=== PATIENT | female | born 1960 | race Caucasian/White ===

== ENCOUNTER → 2017-01-26 | Outpatient (CLI) | payer BC | LOC: FIMAGING 14:11 | DX: Z12.31 Encounter for screening mammogram for malignant neoplasm of breast (principal) | CPT/HCPCS: G0202 ==

== ENCOUNTER 2017-10-06 13:03 | Emergency (ER) | payer BC ==
[2017-10-06 13:16] VITALS: BP 127/84; PULSE 90; RESP 16; TEMP 98.1; O2SAT 93
--- NOTE | 2017-10-06 14:26 | EDPHY ---
H & P Time Seen by Provider: 10/06/17 13:08 HPI/ROS: 56-year-old female presents complaining of right foot pain, she states she was at the [facility] corner when a ladder fell on top of her foot at the exact same time that the ladder fell she was holding a can of large green [employer] which also fell on her foot landing on the dorsum of her foot. Review of systems General no fever no chills no weakness HEENT no eye pain no eye discharge. No eye redness, no sore throat Respiratory no cough, no shortness of breath Cardiac no chest pain, no peripheral edema GI no abdominal pain, no diarrhea, no constipation, no nausea, no vomiting no flank pain, no hematuria, no dysuria Musculoskeletal no myalgias, positive joint pain Heme no easy bruising, no easy bleeding Endo no polyuria, no polydipsia Skin no rashes, no pruritus Neuro no syncope, no dizziness, no headaches Psych is no suicidal ideation, no homicidal ideation Past Medical/Surgical History: Hyperlipidemia DVT/pulmonary embolus Right ankle fracture, ORIF Social History: Denies alcohol or drug use Smoking Status: Never smoked Physical Exam: 56-year-old female Alert and oriented in no acute distress nontoxic appearance, afebrile Atraumatic normocephalic Neck no JVD Lungs clear to auscultation, no respiratory distress Heart regular rate and rhythm Extremities no cyanosis clubbing edema Except Right foot Ecchymosis dorsum of right foot extending from just distal to the ankle and proximal to the toes Proximal aspect of 1st metatarsal with palpable swelling Full range of motion toes and ankle Good capillary refill Most tender over 1st metatarsal Constitutional: Initial Vital Signs Temperature (C) 36.7 C 10/06/17 13:07 Heart Rate 90 10/06/17 13:07 Respiratory Rate 16 10/06/17 13:07 Blood Pressure 127/84 H 10/06/17 13:07 O2 Sat (%) 93 10/06/17 13:07 O2 Delivery Mode Room Air Allergies/Adverse Reactions: rivaroxaban [From Xarelto] Allergy (Verified 10/06/17 13:16) Home Medications: Medication Instructions Recorded Atorvastatin Calcium [Lipitor 20 40 mg PO DAILY 02/05/12 mg (RX)] DULoxetine [Cymbalta 30 MG (RX)] 60 mg PO HS 02/05/12 Levothyroxine [Synthroid 25 mcg 10 DAILY 02/05/12 (RX)] RIZATRIPTAN BENZOATE [[employer]] 10 mg PO PRN 02/05/12 Alprazolam [Niravam] 0.25 mg PO 11/24/12 Eliquis 10/06/17 Hydrocodone/Acetaminophen [[place] 1 - 2 tab PO Q6H PRN #20 tab 10/06/17 5/325 (*)] LYRICA 10/06/17 traZODone 10/06/17 Medical Decision Making - Diagnostics Imaging Results: Imaging Impressions Foot X-Ray 10/06/17 13:19 Impression: 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 ED Course/Re-evaluation: Patient seen and evaluated for right foot trauma. X-ray negative for obvious fracture Physical exam with swelling and tenderness at proximal 1st metatarsal, concerning for hairline/nonvisualized fracture on x-ray Impression Right foot contusion Cannot rule out small fracture Plan Boot Non weight-bearing Follow-up podiatry Patient requested pain prescription, given [place] #20 Departure - Departure Disposition: Home, Routine, Self-Care Clinical Impression: Contusion of right foot Condition: Good Instructions: Foot Contusion (ED) Additional Instructions: Wear boot Minimal weight bearing Follow up with your truss builder this week if possible Referrals: MACIE RAY [Primary Care Provider] - As per Instructions Prescriptions: Hydrocodone/Acetaminophen [[place] 5/325 (*)] 1 - 2 tab PO Q6H PRN #20 tab PRN Reason: Pain, Moderate
== END 2017-10-06 14:39 | disposition home or self-care (01) ==
LOC: CED 13:03
DX: S90.31XA Contusion of right foot, initial encounter (principal); W20.8XXA Other cause of strike by thrown, projected or falling object, initial encounter; Y92.512 Supermarket, store or market as the place of occurrence of the external cause
CPT/HCPCS: 73630-PO

== ENCOUNTER → 2018-06-11 | Outpatient (CLI) | payer BC | DX: Z12.31 Encounter for screening mammogram for malignant neoplasm of breast (principal) ==